=== PATIENT | male | born 1970 | race Two or more races ===

== ENCOUNTER 2022-02-23 20:17 | Emergency (ER) | payer OTHER ==
[~2022-02-23] VITALS: Ht 167.6 cm; Wt 72.6 kg
[2022-02-23] MEDS ORDERED: COZAAR25 MG PO (20:41)
[2022-02-23] MEDS ORDERED: ZOLOFT25 MG PO (20:41)
== END 2022-02-24 09:41 | disposition home or self-care (01) ==
LOC: ER 20:17
DX: R04.0 Epistaxis (principal)